=== PATIENT | female | born 1995 | race Caucasian/White ===

== ENCOUNTER 2017-06-21 08:34 | Emergency (ER) | payer OTHER ==
[2017-06-21 08:53] VITALS: BP 129/72
--- NOTE | 2017-06-21 09:17 | UC ---
Throat Pain/Nasal Ashu HPI - HPI Summary HPI Summary: chest congestion and cough x 2 weeks. nasal congestion , pnd, sore throat saw small amount of blood when coughing this morning no fever - History of Current Complaint Chief Complaint: UCRespiratory Stated Complaint: COUGHING UP BLOOD Time Seen by Provider: 06/21/17 09:07 Hx Obtained From: Patient Hx Last Menstrual Period: unknown ?: Yes Onset/Duration: Gradual Onset, Lasting Weeks - 2, Still Present Severity: Moderate Cough: Nonproductive Associated Signs & Symptoms: Positive: Nasal Discharge. Negative: Sinus Discomfort, Fever, Rash - Allergies/Home Medications Allergies/Adverse Reactions: Allergies Allergy/AdvReac Type Severity Reaction Status Date / Time Amoxicillin Allergy Unknown Unknown Verified 06/21/17 08:54 Reaction Details Erythromycin Allergy Unknown Unknown Verified 06/21/17 08:54 Reaction Details Sulfa Antibiotics Allergy Unknown Verified 04/14/15 09:45 Reaction Details Home Medications: Home Medications Cetirizine HCl [Zyrtec Allergy 10 MG TAB] 10 mg PO DAILY 06/21/17 [History Confirmed 06/21/17] PMH/Surg Hx/FS Hx/Imm Hx Previously Healthy: Yes - Surgical History Surgical History: Yes Surgery Procedure, Year, and Place: x 1 - Family History Known Family History: Negative: Diabetes - Social History Alcohol Use: None Substance Use Type: Marijuana Substance Use Comment - Amount & Last Used: occasional Smoking Status (MU): Never Smoked Tobacco Review of Systems Constitutional: Negative Skin: Negative Eyes: Negative ENT: Sore Throat, Nasal Discharge Respiratory: Cough Cardiovascular: Negative Is Patient Immunocompromised?: No All Other Systems Reviewed And Are Negative: Yes Physical Exam Triage Information Reviewed: Yes Appearance: Well-Appearing, No Pain Distress, Well-Nourished Vital Signs: Initial Vital Signs Temp 98 F 06/21/17 08:45 Pulse 77 06/21/17 08:45 Resp 16 06/21/17 08:45 BP 129/72 06/21/17 08:45 Pulse Ox 100 06/21/17 08:45 Vital Signs Reviewed: Yes Eyes: Positive: Conjunctiva Clear ENT: Positive: Normal ENT inspection, Hearing grossly normal, Pharyngeal erythema, Nasal drainage Neck: Positive: Supple, Nontender, No Lymphadenopathy Respiratory: Positive: Chest non-tender, Lungs clear, Normal breath sounds Cardiovascular: Positive: RRR, No Murmur, Pulses Normal Skin Exam: Normal Throat Pain/Nasal Course/Dx - Differential Dx/Diagnosis Provider Diagnoses: URI Discharge - Discharge Plan Condition: Stable Disposition: HOME Patient Education Materials: Upper Respiratory Infection (ED) Forms: *Work Release Referrals: Johnathan Campbell MD [Primary Care Provider] - If Needed
== END 2017-06-21 09:19 | disposition home or self-care (01) ==
LOC: UCCORT 08:34
DX: J06.9 Acute upper respiratory infection, unspecified (principal); F12.90 Cannabis use, unspecified, uncomplicated; Z88.1 Allergy status to other antibiotic agents; Z88.2 Allergy status to sulfonamides
CPT/HCPCS: 99212; G0463

== ENCOUNTER 2018-01-27 07:55 | Inpatient (IN) | payer OTHER ==
[2018-01-27] MEDS ORDERED: Dinoprostone* 10 MG VAG.SUPP VAGINAL ONE (08:17)
--- NOTE | 2018-01-27 09:00 | HP ---
General Information - General Information Maternal Age: 22 Grav: 2 Para: 0 SAB: 0 IEA: 1 Estimated Due Date: 02/10/18 Determined By: Early Ultrasound Gestational Age in Weeks and Days: 38 Weeks and 0 Days Maternal Blood Type and Rh: O Negative - Results this Serology/RPR Result: Non-Reactive Rubella Result: Immune HBsAg Result: Negative HIV Result: Negative GBS Culture Result: Negative Past Medical History Delivery History Comment: Hx of induced otherwise this is a first full term Pertinent Past Medical History: See Records Past Medical History Comment: Hx asthma, back pain, depression, stomach ulcers (resolved) and rare migraine sx Pertinent Past Surgical History: None Pertinent Family History: See Records Family History Comment: Father: Thyroid disease Mother: IBS MGM: Skin cancer, DM, [place] - Antepartal Records Antepartal Records: Reviewed, Complicated by: - IUGR, THC use Review of Systems Constitutional: Comfortable CV Complaint: No Respiratory: Shortness of Breath: No Gastrointestinal: No Nausea/Vomiting, Normal Bowel Movement Genitourinary: No Dysuria, No Bleeding, No Leaking Fluid Musculoskeletal: No Complaint Neurological: No Headache, No Visual Changes Movement: Normal Exam Allergies/Adverse Reactions: Allergies Sulfa (Sulfonamide Antibiotics) Allergy (Unknown, Verified 01/27/18 07:12) Unknown Reaction Details adhesive Allergy (Verified 01/27/18 07:12) Unknown Reaction Details erythromycin base Allergy (Verified 01/27/18 07:12) Unknown Reaction Details BP 140/78 Repeat 133/94 HR 103 T 98.2 RR 18 - Measurements Height: 5 ft 4 in Weight: 134 lb Body Mass Index (BMI): 23.0 Pre- Weight: 108 lb - Exam Abdomen: No Upper Quadrant Pain Breast: Breast Exam Deferred CVA: No CVA Tenderness Extremities: No Edema Heart: Normal Rhythm/Heart Sounds HEENT: No Significant Findings Lungs: Clear Bilaterally Rectal: Rectal Exam Deferred Reflexes: DTR 2+ Thyroid: No Thyromegaly - Abdominal Exam Abdomen Exam: Non-Tender Abdomen Exam Comment: Fundal height measuring S<D c/w IUGR - Ultrasound/Biophysical Profile Ultrasound Status: Not Done Targeted Exam Findings See L&D Outpatient Visit Provider Note for Findings: N/A Estimated Weight: 5lbs 1oz by sono 01/26/2018 Cervical Exam: 1cm Effacement: 50% Presenting Part: Vertex Membrane Status: Intact Bleeding/Discharge: None EFM Findings - External Monitor Findings Baseline Heart Rate: 125 External Monitor Findings: Accelerations Present, No Pattern of Variable or Late Decelerations, Variability Moderate, Baseline Stable External Monitor Findings Comment: No evidence of metabolic acidemia Contractions: Irregular, Mild Assessment/Plan - Reason for Visit Reason for Visit: IUP at 38 weeks here for induction of labor for known IUGR - Obstetrical Risk Factors Risk Factors Comment: +THC use in . Elevated BP on admission of unknown significance. Labs drawn - Plan Plan: Induction, Cervical Ripening - PARQ Cervidil. All ?s answered. Cervidil placed at 0835. Will remove in approximately 12 hours or sooner PRN tachysystole , intolerance or onset active labor - Date/Time of Admission Date of Admission: 01/27/18 Time of Admission: 08:15
[2018-01-27 11:04] LABS: ABS Basophils 0 10^3/ul (0-0.2); ABS Eosinophils 0.1 10^3/ul (0-0.6); ABS Lymphocytes 2.1 10^3/ul (1.0-4.8); ABS Monocytes 0.9 10^3/ul (0-0.8); ABS Neutrophils 8.8 10^3/ul (1.5-7.7); ABS Nucleated RBC 0 10^3/ul; Eosinophil % 0.5 % (0-6); Hematocrit 32 % (35-47); Hemoglobin 10.8 g/dl (12.0-16.0); Lymphocyte % 17.9 % (25-47); Mean Corpuscular HGB Conc 34 g/dl (31-36); Mean Corpuscular Hemoglobin 27 pg (27-31); Mean Corpuscular Volume 79 fL (80-97); Mean Platelet Volume 6.6 um3 (7.4-10.4); Nucleated Red Blood Cells % 0; Platelet Count 321 10^3/ul (150-450); Red Blood Count 4.01 10^6/ul (4.0-5.4); Red Cell Distribution Width 15 % (10.5-15); White Blood Count 11.8 10^3/ul (3.5-10.8)
[2018-01-27 11:23] LABS: EGFR Non-African American 139.9 (>60); Uric Acid 4.7 mg/dL (2.3-6.6)
--- NOTE | 2018-01-27 14:53 | PTEDU ---
Patient Name: ANJUM GLASS ANJUM GLASS selected video: Never Ever Shake a Baby to view on 01/27/2018 at 2:53:11 PM from [id number]
[2018-01-27] MEDS ORDERED: Acetaminophen TAB* 325 MG PO ONE (16:44)
[2018-01-28] MEDS ORDERED: Ketorolac INJ* 30 MG/ML 1 ML VIAL ONE (00:36)
[2018-01-28] MEDS ORDERED: DiMENhydriNATE IV* 50 MG/ML VIAL ONE (00:36)
[2018-01-28] MEDS ORDERED: Phenylephrine IV* 40 MCG/ML 10 ML SYRINGE ONE (00:36)
[2018-01-28] MEDS ORDERED: Morphine PF AMP (0.5MG/ML)* 5 MG/10 ML AMP ONE (00:36)
[2018-01-28] MEDS ORDERED: OXYTOCIN* 10 UNITS/ML 1 ML VIAL ONE (00:36)
[2018-01-28] MEDS ORDERED: Bupivacaine-MPF SPINAL* 7.5 MG/2 ML AMP ONE (00:38)
[2018-01-28] MEDS ORDERED: Lidocaine 2% PF * 5 ML VIAL ONE (00:38)
[2018-01-28] MEDS ORDERED: ceFOXitin 2 GM IVPREMIX* 2 GM/50 ML BAG IVPB ONE (00:39)
[2018-01-28] MEDS ORDERED: ceFOXitin 2 GM IVPREMIX* 2 GM/50 ML BAG ONE (00:40)
[2018-01-28] MEDS ORDERED: Acetaminophen IV 1GM/100ML * 1,000 MG/100 ML VIAL IVPB ONE (00:42)
[2018-01-28] MEDS ORDERED: HYDROmorphone INJ* 1 MG/ML CARPUJECT SYRINGE IV PRN (00:42)
[2018-01-28] MEDS ORDERED: Naloxone* 0.4 MG/ML 1 ML VIAL IV PRN (00:42)
[2018-01-28] MEDS ORDERED: Ondansetron SYRINGE* 4 MG/2 ML SYRINGE (from 40mg/20ml vial) IV PRN (00:42)
[2018-01-28] MEDS ORDERED: KETAMINE HCL* 50 MG/ML 10 ML VIAL ONE (01:49)
[2018-01-28] MEDS ORDERED: fentaNYL* 50 MCG/ML 2 ML VIAL (100 MCG VIAL) ONE (02:04)
[2018-01-28] MEDS ORDERED: Dexamethasone IV* 4 MG/ML 1 ML (4 MG) ONE (02:18)
[2018-01-28] MEDS ORDERED: Dibucaine 1% 28.35 GM TUBE PR PRN (02:37)
[2018-01-28] MEDS ORDERED: Acetaminophen TAB* 325 MG PO PRN (02:37)
[2018-01-28] MEDS ORDERED: Zolpidem TAB* 5 MG PO PRN (02:37)
[2018-01-28] MEDS ORDERED: Glycerin ADULT SUPP PR PRN (02:37)
[2018-01-28] MEDS ORDERED: Witch Hazel PAD* JAR TOPICAL PRN (02:37)
[2018-01-28] MEDS: oxyCODONE/Acetamin 5/325 MG* TAB PO PRN ×5 (05:15→23:56)
--- NOTE | 2018-01-28 06:46 | OP ---
DATE OF OPERATION: 01/28/18 - ROOM #117 DATE OF : 89. DATE OF ADMISSION: 01/27/18 SURGEON: Jenna Saba MD SQUEEGEE OPERATOR: Bin Cazares CNM. PRE-OP DIAGNOSIS: Intrauterine gestation at 38 weeks, IUGR, category 2 heart tracing, remote from delivery. POST-OP DIAGNOSIS: Intrauterine gestation at 38 weeks, IUGR, category 2 heart tracing, remote from delivery. OPERATIVE PROCEDURE: Primary lower transverse section. ESTIMATED BLOOD LOSS: 500 mL. FLUIDS: Crystalloid. DRAINS: Espinosa catheter. COMPLICATIONS: None. COUNTS: All correct. FINDINGS: Male infant, weight 4 pounds 15 ounces, Apgars 8 and 9. Normal- appearing uterus, ovaries and tubes. Normal-appearing placenta. DESCRIPTION OF PROCEDURE: After informed consent was signed, the patient was taken to the operating room. Multiple attempts were made at giving her spinal anesthesia, which were unsuccessful, so a decision was made to proceed with general anesthesia. A Espinosa catheter was introduced into her bladder. A time out was performed. As soon as she received the anesthesia a Pfannenstiel skin incision was made with a scalpel and carried down to the underlying layer of fascia. The fascia was incised on either side of the midline and the fascial incision was extended laterally with the Dia scissors. The inferior edge of the fascial incision was grasped with Lily clamps, tented up, and dissected down with a combination of sharp and blunt dissection. Then the superior edge of the fascial incision was grasped with Lily clamps, tented up, and dissected down with a combination of sharp and blunt dissection. The rectus muscles were in the midline and the peritoneum was entered bluntly. The peritoneal incision was extended laterally with a blunt dissection and Metzenbaum scissors. The bladder blade was inserted and a transverse incision was made in the lower uterine segment with a scalpel. This incision was extended superiorly and inferiorly with blunt pressure. The infant's head was delivered with fundal pressure followed by the shoulders and the rest of the body. The cord was clamped x2 and cut and the baby was handed to the balcony worker. Cord blood was collected. The placenta delivered with gentle cord traction and fundal massage. The uterus was exteriorized and covered with a moist lap. First, the uterus was cleared of clots and debris. Then the uterine incision was closed with 0 Vicryl in a running locked fashion with the second layer of suture imbricating the first. Good hemostasis was noted along the length of the uterine incision. The abdomen was irrigated and the uterus was placed back into the abdominal cavity. The incision was inspected once again and good hemostasis was noted. The peritoneum was closed with 3-0 Vicryl in a running unlocked fashion. The fascia was closed with 0 Vicryl in a running unlocked fashion. The subcuticular layer was irrigated and the skin was closed with 4-0 Monocryl in a running subcuticular fashion. The incision was cleaned. Mastisol and Steri-Strips were placed and a dressing was placed. The patient was awakened from anesthesia and moved to the stretcher and taken to the recovery room in stable condition. [id number]/CPS #: [id number] JACKLYN
[2018-01-28] MEDS: Simethicone TAB* 80 MG TAB.CHEW PO SCH ×4 (09:01→20:24)
[2018-01-28] MEDS: Docusate CAP* 100 MG PO SCH ×3 (09:01→20:24)
[2018-01-28] MEDS: Ketorolac INJ* 30 MG/ML 1 ML VIAL IV PUSH PRN ×2 (09:02→15:03)
[2018-01-28] MEDS ORDERED: RHO D Immune Globulin (HUMAN)* 300 MCG = 1,500 I.U. INJ IM ONE (20:04)
[2018-01-29] MEDS: Ibuprofen TAB* 600 MG PO PRN ×4 (02:32→22:01)
[2018-01-29] MEDS: oxyCODONE/Acetamin 5/325 MG* TAB PO PRN ×3 (06:08→20:18)
[2018-01-29 06:34] LABS: ABS Basophils 0.1 10^3/ul (0-0.2); ABS Eosinophils 0.1 10^3/ul (0-0.6); ABS Lymphocytes 3.2 10^3/ul (1.0-4.8); ABS Monocytes 1.1 10^3/ul (0-0.8); ABS Neutrophils 8.9 10^3/ul (1.5-7.7); ABS Nucleated RBC 0 10^3/ul; Eosinophil % 0.5 % (0-6); Hematocrit 28 % (35-47); Hemoglobin 9.5 g/dl (12.0-16.0); Lymphocyte % 23.9 % (25-47); Mean Corpuscular HGB Conc 34 g/dl (31-36); Mean Corpuscular Hemoglobin 27 pg (27-31); Mean Corpuscular Volume 80 fL (80-97); Mean Platelet Volume 6.3 um3 (7.4-10.4); Nucleated Red Blood Cells % 0.1; Platelet Count 268 10^3/ul (150-450); Red Blood Count 3.51 10^6/ul (4.0-5.4); Red Cell Distribution Width 15 % (10.5-15); White Blood Count 13.3 10^3/ul (3.5-10.8)
[2018-01-29] MEDS: Simethicone TAB* 80 MG TAB.CHEW PO SCH ×4 (09:39→20:19)
[2018-01-29] MEDS: Ferrous Gluconate TAB* 324 MG TAB PO SCH ×2 (09:39→20:19)
[2018-01-29] MEDS: Docusate CAP* 100 MG PO SCH ×3 (09:39→20:19)
[2018-01-29 19:40] VITALS: BP 123/66
[2018-01-30] MEDS: oxyCODONE/Acetamin 5/325 MG* TAB PO PRN ×5 (00:17→20:29)
[2018-01-30] MEDS: Ibuprofen TAB* 600 MG PO PRN ×4 (03:44→23:18)
[2018-01-30] MEDS: Docusate CAP* 100 MG PO SCH ×3 (09:06→20:30)
[2018-01-30] MEDS: Simethicone TAB* 80 MG TAB.CHEW PO SCH ×4 (09:06→20:30)
[2018-01-30] MEDS: Ferrous Gluconate TAB* 324 MG TAB PO SCH ×2 (09:06→20:29)
[2018-01-31] MEDS: oxyCODONE/Acetamin 5/325 MG* TAB PO PRN ×2 (01:11→08:33)
[2018-01-31] MEDS: Docusate CAP* 100 MG PO SCH (08:32)
[2018-01-31] MEDS: Ferrous Gluconate TAB* 324 MG TAB PO SCH (08:32)
[2018-01-31] MEDS: Ibuprofen TAB* 600 MG PO PRN (08:32)
[2018-01-31] MEDS: Simethicone TAB* 80 MG TAB.CHEW PO SCH (08:32)
== END 2018-01-31 13:50 | disposition home or self-care (01) | DRG 765 ==
LOC: MCHOBOUT 07:55 → MCHOB 08:13
PROVIDERS: ADMIT Midwife; ATTEND Obstetrics & Gynecology
PROC: 3E033VJ Introduction of Other Hormone into Peripheral Vein, Percutaneous Approach (ICD-10-PCS; 2018-01-28)
PROC: 10D00Z1 Extraction of Products of Conception, Low, Open Approach (ICD-10-PCS; principal; 2018-01-28 00:50)
DX: O76 Abnormality in fetal heart rate and rhythm complicating labor and delivery (principal); O36.5930 Maternal care for other known or suspected poor fetal growth, third trimester, not applicable or unspecified; O99.344 Other mental disorders complicating childbirth; O90.81 Anemia of the puerperium; D64.9 Anemia, unspecified; F32.9 Major depressive disorder, single episode, unspecified; Z3A.38 38 weeks gestation of pregnancy; Z37.0 Single live birth
CPT/HCPCS: 36415; 59200; 80053; 80307; 84550; 85025; 85461; 86850; 86870; 86880; 86900; 86901; 88307; A9270-GY; J0694; J1100; J1240; J1885; J2590; J2790; J3010

== ENCOUNTER 2019-10-27 11:49 | Emergency (ER) | payer OTHER ==
[2019-10-27 13:05] VITALS: BP 112/72
--- NOTE | 2019-10-27 13:21 | UC ---
Abdominal Pain Female HPI - HPI Summary HPI Summary: 24-year-old female who is here today complaining of rectal bleeding since last evening and abdominal discomfort. She denies any fever or chills however she does state she feels lightheaded. No nausea or vomiting. She has a history of rectal bleeding 2 years ago where she bled yuri blood however she did not follow-up with anyone and after 2 days resolved spontaneously. She also started her menses today however she states this is not due to her menses. - History of Current Complaint Chief Complaint: UCGI Stated Complaint: PERSONAL Time Seen by Provider: 10/27/19 13:13 Hx Obtained From: Patient Hx Last Menstrual Period: onset today ?: No Onset/Duration: Sudden Onset, Lasting Hours - Started last evening, no history of hemorrhoids Timing: Intermittent Episodes Lasting: Severity Initially: Moderate Severity Currently: Moderate Pain Intensity: 8 Location: Other - Patient states she has generalized abdominal discomfort, but more in the lower abdomen. Radiates: No Character: Unable to describe Aggravating Factor(s): Nothing Alleviating Factor(s): Nothing Associated Signs and Symptoms: Positive: Dizzy - Patient states she feels mildly lightheaded at times., Other: - Patient states she will feel pressure like she needs to have a bowel movement and then she will have a bowel movement of yuri red blood. Has had approximately 4 bouts since last evening. Allergies/Adverse Reactions: Allergies Allergy/AdvReac Type Severity Reaction Status Date / Time Sulfa (Sulfonamide Allergy Unknown Unknown Verified 10/27/19 12:51 Antibiotics) Reaction Details adhesive Allergy Unknown Verified 10/27/19 12:51 Reaction Details erythromycin base Allergy Unknown Verified 10/27/19 12:51 Reaction Details Home Medications: Home Medications Oral Contraceptive 1 tab PO DAILY 10/27/19 [History] PMH/Surg Hx/FS Hx/Imm Hx Previously Healthy: Yes GI/ History: Ulcer, Other - Surgical History Surgical History: Yes Surgery Procedure, Year, and Place: x 1 - Family History Known Family History: Negative: Diabetes - Social History Alcohol Use: Rare Substance Use Type: Marijuana Substance Use Comment - Amount & Last Used: occasional Smoking Status (MU): Never Smoked Tobacco - Immunization History Most Recent Influenza Vaccination: unknown Most Recent Pneumonia Vaccination: none Review of Systems All Other Systems Reviewed And Are Negative: Yes Gastrointestinal: Positive: Abdominal Pain, Other - See above notes. Is Patient Immunocompromised?: No Physical Exam Triage Information Reviewed: Yes Appearance: Well-Appearing, No Pain Distress, Well-Nourished Vital Signs: Initial Vital Signs Temp 99.7 F 10/27/19 12:54 Pulse 77 10/27/19 12:54 Resp 20 10/27/19 12:54 BP 112/72 10/27/19 12:54 Pulse Ox 100 10/27/19 12:54 Vital Signs Reviewed: Yes Eyes: Positive: Conjunctiva Clear ENT: Positive: Pharynx normal, TMs normal, Uvula midline Neck: Positive: Supple, Nontender, No Lymphadenopathy Respiratory: Positive: Lungs clear, Normal breath sounds, No respiratory distress, No accessory muscle use Cardiovascular: Positive: RRR, No Murmur, Pulses Normal, Brisk Capillary Refill Abdomen Description: Positive: Nontender, No Organomegaly, Soft, Other: - Although patient does not react with pain on abdominal palpation as I'm palpating she states that it's uncomfortable.. Negative: CVA Tenderness (R), CVA Tenderness (L), Distended, Guarding, Hepatomegaly, McBurney's Point Tenderness, Splenomegaly Bowel Sounds: Positive: Present Musculoskeletal Exam: Normal Neurological Exam: Normal Psychological Exam: Normal Skin Exam: Normal Abd Pain Female Course/Dx - Course Course Of Treatment: The patient is awake and alert here and nontoxic. I am referring her to the emergency room for further patient and treatment. She is here alone today however she states her father dropped her off and he will pick her up and take her to the hospital. She refused an ambulance transport. The patient also refused a rectal exam. - Differential Dx/Diagnosis Provider Diagnosis: Rectal bleeding, Abdominal pain Discharge ED - Sign-Out/Discharge Documenting (check all that apply): Patient Departure All imaging exams completed and their final reports reviewed: No Studies - Discharge Plan Condition: Fair Disposition: HOME-RECOMMEND TO ED Referrals: Non Staff,Doctor [Primary Care Provider] - Additional Instructions: After the evaluation by the nurse practitioner, it is recommended that you go to the emergency room for further evaluation of the abdominal pain and rectal bleeding where you should receive additional testing that can be completed in the emergency department. It is recommended that you go directly to the emergency department. This evaluation may include blood work or imaging. This testing will be directed and decided by the provider that evaluates you within the emergency department. If pain becomes worse, you feel lightheaded or you develop uncontrolled vomiting, or have any other concerns while you are driving to the emergency room, please pullman clerk and call 911. - Billing Disposition and Condition Condition: FAIR Disposition: Home-Recommend to ED
== END 2019-10-27 13:29 | disposition home health service (06) ==
LOC: UCCORT 11:49
DX: K62.5 Hemorrhage of anus and rectum (principal); R10.9 Unspecified abdominal pain; Z88.2 Allergy status to sulfonamides; Z91.09 Other allergy status, other than to drugs and biological substances; Z88.1 Allergy status to other antibiotic agents
CPT/HCPCS: 99212; G0463